=== PATIENT | male | born 1990 | race African-American/Black ===

== ENCOUNTER 2021-04-12 04:10 | Emergency (ER) | payer MEDICAID ==
[~2021-04-12] VITALS: Ht 177.8 cm; Wt 118.0 kg
[2021-04-12] MEDS ORDERED: ONDANSETRON 4MG ODT PO STA (04:32)
[2021-04-12] MEDS ORDERED: KETOROLAC 60MG/2ML VIAL IM STA (04:32)
[2021-04-12 04:54] LABS: BASOPHILS % 0.5 % (0.0-2.0); EOSINOPHILS % 0.7 % (0.0-5.0); HEMATOCRIT. 44.3 % (42.0-52.0); HEMOGLOBIN. 15.1 g/dL (14.0-18.0); LYMPHOCYTES % 30.8 % (20.0-50.0); MEAN CORPUSCULAR HEMOGLOBIN 30.4 pg (28.0-32.0); MEAN CORPUSCULAR VOLUME 89.3 fL (80.0-94.0); MEAN PLATELET VOLUME 8.8 fl (7.4-10.4); MONOCYTES % 12.5 % (2.0-8.0); NEUTROPHILS % 55.5 % (40.0-76.0); PLATELET 211 x1000/uL (130-400); RED BLOOD CELL COUNT 4.95 mill/uL (4.7-6.1)
[2021-04-12 04:58] LABS: CHLORIDE 102 mEq/L (98-107)
[2021-04-12 05:02] LABS: ETHANOL BLOOD < 10 mg/dL
[2021-04-12 05:07] LABS: CLARITY URINE CLEAR (CLEAR); COLOR URINE DARK YELLOW (YELLOW); KETONES URINE TRACE (NEGATIVE); LEUKOCYTE ESTERASE URINE 1+ (NEGATIVE); NITRITE URINE NEGATIVE (NEGATIVE); OCCULT BLOOD URINE NEGATIVE (NEGATIVE); PROTEIN URINE TRACE (NEGATIVE); SPECIFIC GRAVITY URINE 1.025 (1.005-1.030)
[2021-04-12 05:35] LABS: *AMPHETAMINES SCREEN URINE NEGATIVE (NEGATIVE); *BARBITURATES SCREEN URINE NEGATIVE (NEGATIVE)
[2021-04-12 05:36] LABS: *BENZODIAZEPINES SCREEN URINE NEGATIVE (NEGATIVE); *COCAINE SCREEN URINE NEGATIVE (NEGATIVE); CANNABINOID URINE SCREEN NEGATIVE (NEGATIVE); METHADONE URINE SCREEN NEGATIVE (NEGATIVE); OPIATES URINE SCREEN NEGATIVE (NEGATIVE); PHENCYCLIDINE URINE SCREEN NEGATIVE (NEGATIVE)
[2021-04-12] MEDS ORDERED: SODIUM CHLORIDE 0.9% 1,000 ML IV ONE (06:30)
[2021-04-12] MEDS ORDERED: MORPHINE SULFATE 4 MG/ML CPJ (NOT FOR IM USE) IV ONE (06:30)
[2021-04-12] MEDS ORDERED: CEFTRIAXONE 1 G PREMIX 50 ML IV ONE (08:00)
[2021-04-12 11:44] LABS: INR 1.9; PROTHROMBIN TIME 19.5 sec (9.6-11.0)
[2021-04-12] MEDS ORDERED: CIPR-263 MT (11:51)
[2021-04-12 11:53] VITALS: BP 115/75
== END 2021-04-12 12:21 | disposition left against medical advice (07) ==
LOC: ER 04:10 → CANBEDREQ 12:28
DX: K80.50 Calculus of bile duct without cholangitis or cholecystitis without obstruction (principal); Z20.822 Contact with and (suspected) exposure to COVID-19
CPT/HCPCS: 36415; 74176; 80053; 80305; 80320; 81003; 83690; 85025; 85610; 86850; 86900; 86901; 87426; 93005; 96361; 96372; 96374; 96375; 99285; J0696; J1885; J2270; J7030; Q0162; Z7610; G0480

== ENCOUNTER 2021-05-23 18:21 | Emergency (ER) | payer BC, MEDICAID ==
[~2021-05-23] VITALS: Ht 172.7 cm; Wt 89.0 kg
[~2021-05-23 18:21] MED LIST: CIPR-263 MT
[2021-05-23 18:41] VITALS: BP 117/83
[2021-05-23] MEDS ORDERED: CEPH500T MT (22:32)
== END 2021-05-23 22:44 | disposition home or self-care (01) ==
LOC: ER 18:26
DX: Z48.01 Encounter for change or removal of surgical wound dressing (principal); Z90.49 Acquired absence of other specified parts of digestive tract
CPT/HCPCS: 99281